=== PATIENT | female | born 1965 | race Caucasian/White ===

== ENCOUNTER 2018-07-28 13:52 | Emergency (ER) | payer SELFPAY ==
[~2018-07-28] VITALS: Ht 165.1 cm; Wt 90.8 kg
[2018-07-28 15:37] LABS: ALBUMIN 3.7 g/dL (3.4-5.0); ANION GAP 5 mmol/L (5-15); CALCIUM 8.3 mg/dL (8.5-10.1); CHLORIDE 109 mmol/L (98-107)
[2018-07-28 15:38] LABS: CREATININE 0.51 mg/dL (0.55-1.02)
[2018-07-28 16:32] LABS: BASOPHILS # (AUTO) 0.02 x10^3/uL (0-0.1); BASOPHILS % (AUTO) 0 % (0-1); EOSINOPHILS # (AUTO) 0.15 x10^3/uL (0-0.4); EOSINOPHILS % (AUTO) 2 % (1-7); LYMPHOCYTES # (AUTO) 2.41 x10^3/uL (1-3.4); LYMPHOCYTES % (AUTO) 34 % (22-44); MD MORPH REVIEW ONLY; MEAN CORPUSCULAR HEMOGLOBIN 26.7 pg (27.0-34.8); MEAN CORPUSCULAR HGB CONC 31.2 g/dL (32.4-35.8); MEAN CORPUSCULAR VOLUME 85.5 fL (80-100); MEAN PLATELET VOLUME 7.5 fL (7.4-10.4); MONOCYTES # (AUTO) 0.53 x10^3/uL (0.2-0.8); MONOCYTES % (AUTO) 8 % (2-9); NEUTROPHILS # (AUTO) 3.94 x10^3/uL (1.8-6.8); NEUTROPHILS % (AUTO) 56 % (42-75); PLATELET COUNT 458 x10^3/uL (130-400); RED BLOOD COUNT 3.68 x10^6/uL (3.82-5.3); RED CELL DISTRIBUTION WIDTH 22.7 % (9.6-15.2)
[2018-07-28 16:33] LABS: <PLATELET ESTIMATE> ADEQUATE; <PLT MORPHOLOGY> NORMAL PLT MORPH; ANISOCYTOSIS 2+; HYPOCHROMIA 1+; MICROCYTOSIS 2+; POLYCHROMASIA 1+
--- NOTE | 2018-07-28 16:45 | NUR ---
PT TO ROOM AT THIS TIME
--- NOTE | 2018-07-28 16:55 | NUR ---
ASSUMED CARE OF PT AT THIS TIME. AMBULATORY TO ROOM WITH STEADY GAIT. THIS RN ASKED PT IF SHE COULD PROVIDE A URINE SAMPLE PER ORDER, PT UPSET AND CRYING, STATED "I GAVE A SAMPLE TO THEM EARLIER, ARE YOU SERIOUS, IT'S NOT EVEN IN THERE, THAT'S ALL I NEEDED, I NEED CLEARANCE TO GET ON A PLANE AND I JUST CAN'T BELIEVE THIS, I'VE WAITED SO LONG." PT STATING SHE WANTS TO LEAVE, DECLINES TO ALLOW THIS RN TO OBTAIN VITALS OR COMPLETE ASSESSMENT. LAB CALLED AND [facility] IN SAMPLE ROOM, COLLECTED AT 1505 BY CHAIN HOIST OPERATOR, PROCESSING PER LAB AT THIS TIME. DISCUSSED WITH DR. BECERRA, AWARE OF PT SITUATION. TO SEE PT.
--- NOTE | 2018-07-28 17:00 | NUR ---
PT STATING SHE IS LEAVING, TO GET AMA PAPERWORK
--- NOTE | 2018-07-28 17:10 | NUR ---
DISCUSSED POC WITH PT AND ASSURED HER URINE IS PROCESSING AND HER POC WITH DISCUSSED WITH ERP DR. BECERRA, PT AGREES TO WAIT FOR MD EVALUATION.
--- NOTE | 2018-07-28 17:20 | NUR ---
PT CONTINUES TO DECLINE ASSESSMENT AND VITALS, PACING IN ROOM AWAITING MD EVALUATION.
[2018-07-28 17:23] LABS: MICROSCOPIC AUTO
[2018-07-28 17:24] LABS: CULTURE INDICATED? NO
--- NOTE | 2018-07-28 17:40 | NUR ---
PT LEAVING, WALKING DOWN HALLWAY WITH STEADY GAIT, DR. BECERRA IN HALLWAY WELL, PT AGREES TO RETURN TO ROOM TO DISCUSS TEST RESULTS.
--- NOTE | 2018-07-28 17:48 | NUR ---
DR. BECERRA AT BEDSIDE FOR EVALUATION. PT CONTINUES TO REFUSE ASSESMENT AND VITALS BY THIS RN. UPSET SPEAKING WITH DOCTOR. SEVERAL ATTEMPTS MADE TO MAKE PT COMFORTABLE AND RE-ASSURED OF CONCERNS. BEDSIDE REPORT AND CARE TO NOAH LAZCANO AT THIS TIME.
[2018-07-28] MEDS ORDERED: ONDANSETRON ODT 4 MG PO ONE (18:00)
[2018-07-28] MEDS ORDERED: HYDROmorphone 1 MG/ML, 1ML IM ONE (18:00)
[2018-07-28] MEDS ORDERED: ONDANSETRON ODT 4 MG ONE (18:05)
[2018-07-28] MEDS ORDERED: HYDROmorphone 1 MG/ML, 1ML ONE (18:05)
--- NOTE | 2018-07-28 18:14 | NUR ---
PT MEDICATED PER ORDERS. AGREED TO HAVE VS TAKEN. WANTS TO GET DISCHARGE PAPERS AND LEAVE [place]. ERP NOTIFIED.
[2018-07-28 18:15] VITALS: BP 137/78
--- NOTE | 2018-07-28 18:37 | NUR ---
D/C INSTRUCTIONS, MEDS, AND F/U APPT RV'WD WITH PT. RX GIVEN X2. PT AMBULATED OUT OF ED WITHOUT DIFFICULTY, TO DRIVE HER HOME.
== END 2018-07-28 18:48 | disposition home or self-care (01) ==
LOC: ED 18:42
DX: G89.29 Other chronic pain (principal); R10.9 Unspecified abdominal pain
CPT/HCPCS: 36415; 74018; 76770; 80048; 81001; 82040; 85025; 96372; 99284; J1170; Q0162